=== PATIENT | female | born 1960 | race Caucasian/White ===

== ENCOUNTER 2020-01-23 14:08 | Emergency (ER) | payer OTHER ==
[~2020-01-23] VITALS: Ht 167.6 cm; Wt 116.0 kg
[2020-01-23 14:12] VITALS: BP 136/89
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
[2020-01-23] MEDS ORDERED: ONDANSETRON ODT 8 MG ONE (14:29)
[2020-01-23] MEDS ORDERED: ONDANSETRON ODT 8 MG PO ONE (14:30)
[2020-01-23] MEDS ORDERED: OXYcodone/APAP 5/325MG TABLET ONE (14:30)
[2020-01-23] MEDS ORDERED: OXYcodone/APAP 5/325MG TABLET PO ONE (14:30)
--- NOTE | 2020-01-23 14:40 | NUR ---
PT MEDICATED PER EMAR. PT TOLERATED WELL. PT'S AOX4. RESPS EVEN AND UNLABORED.
--- NOTE | 2020-01-23 15:36 | NUR ---
PT'S PAIN LEVEL IS 3/10 AT THIS TIME.
--- NOTE | 2020-01-23 16:03 | NUR ---
emt at bedside for splint at this time.
--- NOTE | 2020-01-23 16:16 | NUR ---
Patient given discharge instructions and they have confirmed that they understand the instructions.
== END 2020-01-23 16:17 | disposition home or self-care (01) ==
LOC: ED 15:15
DX: S93.401A Sprain of unspecified ligament of right ankle, initial encounter (principal); I10 Essential (primary) hypertension; X50.1XXA Overexertion from prolonged static or awkward postures, initial encounter; Y93.89 Activity, other specified; Y92.098 Other place in other non-institutional residence as the place of occurrence of the external cause; Y99.8 Other external cause status
CPT/HCPCS: 29515; 73610; 73630; 99284; Q0162